=== PATIENT | male | born 1965 | race Caucasian/White ===

== ENCOUNTER 2018-03-02 17:02 | Emergency (ER) | payer SELFPAY ==
[~2018-03-02] VITALS: Ht 170.2 cm; Wt 69.0 kg
[~2018-03-02 17:02] MED LIST: NO MEDS
[2018-03-02 18:05] LABS: BASOPHILS % 1.1 % (0.0-2.0); EOSINOPHILS % 12.8 % (0.0-5.0); HEMATOCRIT. 41.1 % (42.0-52.0); HEMOGLOBIN. 13.6 g/dL (14.0-18.0); LYMPHOCYTES % 17.5 % (20.0-50.0); MEAN CORPUSCULAR HEMOGLOBIN 27.8 pg (28.0-32.0); MEAN CORPUSCULAR VOLUME 83.7 fL (80.0-94.0); MEAN PLATELET VOLUME 7.5 fl (7.4-10.4); NEUTROPHILS % 58.6 % (40.0-76.0); PLATELET 374 x1000/uL (130-400); RED BLOOD CELL COUNT 4.92 mill/uL (4.7-6.1); RED CELL DISTRIBUTION WIDTH 13.5 % (11.6-14.6)
[2018-03-02 18:08] LABS: PROTHROMBIN TIME 10.4 sec (9.4-11.6)
[2018-03-02 18:11] LABS: CHLORIDE 96 mEq/L (98-107)
[2018-03-02] MEDS ORDERED: METHYLPREDNISOLONE SOD SUCC 125 MG/2 ML VIAL IV NR (21:15)
[2018-03-02] MEDS ORDERED: DIPHENHYDRAMINE 50MG/ML VIAL IV NR (21:15)
[2018-03-02] MEDS ORDERED: FAMOTIDINE 20MG/2ML VIAL IV NR (21:15)
[2018-03-02] MEDS ORDERED: INSULIN REGULAR (HUMULIN R) 300UNITS/3ML IV NR (22:45)
[2018-03-02 23:12] VITALS: BP 153/95
== END 2018-03-02 23:15 | disposition home or self-care (01) ==
LOC: ER 17:02
DX: T78.40XA Allergy, unspecified, initial encounter (principal); E11.65 Type 2 diabetes mellitus with hyperglycemia; E78.00 Pure hypercholesterolemia, unspecified; I10 Essential (primary) hypertension; F17.200 Nicotine dependence, unspecified, uncomplicated; R79.1 Abnormal coagulation profile; X58.XXXA Exposure to other specified factors, initial encounter
CPT/HCPCS: 36415; 80053; 85025; 85610; 96374; 96375; 99284; J1200; J2930; J3490; Z7610